=== PATIENT | male | born 1990 | race Two or more races ===

== ENCOUNTER 2024-01-01 17:57 | Emergency (ER) | payer MEDICAID, OTHER ==
[~2024-01-01] VITALS: Ht 185.4 cm; Wt 107.3 kg
[2024-01-01 19:43] VITALS: BP 140/94; PULSE 91; RESP 16; TEMP 98.2; O2SAT 98
[2024-01-01] MEDS ORDERED: IBUP-1456 PO (19:57)
[2024-01-01] MEDS ORDERED: CLIN1CAP70 PO (19:57)
--- NOTE | 2024-01-01 19:57 | ED.PDOC ---
Eye-HPI HPI Comments 33-year-old male presents to ER with complaints of toothache x1 month. Patient reports he has been experiencing left upper and lower toothache x1 month with associated left-sided facial swelling x1 day. States that he did follow up with a provider with regards to his symptoms 10 days ago and was prescribed amoxicillin that he has taken with little relief. He rates his current toothache pain a 10/10 with radiation towards the left side of face and left side of forehead. Patient presents to ER ambulatory on arrival, with steady gait, in no distress and states he has has not yet followed up with a dentist regards to his symptoms. Denies fever, body aches, chills, nausea/vomiting, numbness/tingling or any further symptoms/complaints Chief Complaint: Tooth Pain Time Seen by MD: 18:19 Primary Care Provider: UNKNOWN Reviewed Notes: Nurses Notes, Medications, Allergies Allergies: Coded Allergies: NO KNOWN ALLERGIES (Unverified , 01/01/24) Home Meds Active Scripts Ibuprofen (Ibuprofen) 800 Mg Tab, 1 TAB PO TID PRN, #30 TAB 0 Refills Prov:MARK RODRÍGUEZ 01/01/24 Clindamycin Hcl (Clindamycin Hcl) 300 Mg Cap, 300 MG PO QID for 7 Days, #28 CAP 0 Refills Prov:MARK RODRÍGUEZ 01/01/24 Information Source: Patient Mode of Arrival: Ambulatory Past Medical History PAST MEDICAL HISTORY: Denies Surgical History: Denies all surgeries Family History Family History: Unknown Social History Smoker: Non-Smoker Alcohol: Occasionally Drugs: Denies Drug Use Lives In: Home Constitutional: denies: chills, diaphoresis, fatigue, fever, malaise, sweats, weakness, others EENTM: reports: others (As stated in HPI) Respiratory: denies: cough, hemoptysis, orthopnea, SOB at rest, shortness of breath, SOB with excertion, stridor, wheezing, others Cardiovascular: denies: chest pain, dizzy spells, diaphoresis, Dyspnea on exertion, edema, irregular heart beat, left arm pain, lightheadedness, palpitations, PND, syncope, others Gastrointestinal: denies: abdomen distended, abdominal pain, blood streaked bowels, constipated, diarrhea, dysphagia, difficulty swallowing, hematemesis, melena, nausea, poor appetite, poor fluid intake, rectal bleeding, rectal pain, vomiting, others Genitourinary: denies: burning, dysuria, flank pain, frequency, hematuria, incontinence, penile discharge, penile sore, pain, testicle pain, testicle swelling, urgency, others Neurological: reports: others (As stated in HPI) Musculoskeletal: denies: back pain, gout, joint pain, joint swelling, muscle pain, muscle stiffness, neck pain, others Integumetry: denies: bruises, change in color, change in hair/nails, dryness, laceration, lesions, lumps, rash, wounds, others Allergic/Immunocompromised: denies: Difficulty Healing, Frequent Infections, Hives, Itching, others Hematologic/Lymphatic: denies: anemia, blood clots, easy bleeding, easy bruising, swollen glands, others Endocrine: denies: excessive hunger, excessive sweating, excessive thirst, excessive urination, flushing, intolerance to cold, intolerance to heat, unexplained weight gain, unexplained weight loss, others Psychiatric: denies: anxiety, bipolar disorder, depression, hopeless, panic disorder, schizophrenia, sleepless, suicidal, others Physical Exam General Appearance: No Apparent Distress, Obese HEENT: PERRL/EOMI, Pharynx Normal, TMs Normal, Other (Broken tooth #36 noted with mild surrounding gum swelling/erythema, slight swelling/erythema also noted surrounding gums of tooth #28. Mild left-sided facial swelling noted, no erythema/further skin changes noted) Neck: Full Range of Motion, Non-Tender, Normal Respiratory: Chest Non-Tender, Lungs Clear, No Accessory Muscle Use, No Respiratory Distress, Normal Breath Sounds Cardiovascular: No Murmur, No Gallop, Regular Rate/Rhythm Breast Exam: Deferred Gastrointestinal: NOT DONE Genitalia: Deferred Pelvic: Deferred Rectal: Deferred Extremities: Normal capillary refill, Normal range of motion Neurologic: Alert, records management engineer II-XII nml as Tested, No Motor Deficits, Normal Affect, Normal Mood, No Sensory Deficits Cerebellar Function: Normal Reflexes: Normal Skin: Dry, Normal Color, Warm Lymphatic: No Adenopathy Was a procedure done? Was a procedure done?: No Sedation Sedation?: No EENT DIFF Eye: N/A Mouth: Thrush, Other (Dental abscess, Thom's angina) X-Ray, Labs, Meds, VS Vital Signs Date Time Temp Pulse Resp B/P (MAP) Pulse Ox O2 Delivery O2 Flow Rate FiO2 01/01/24 19:43 91 16 98 Room Air 01/01/24 19:43 98.2 91 16 140/94 (109) 98 98.2 01/01/24 18:10 98.6 91 16 140/94 (109) 98 Rocephin 1 g IM ordered Hurricane spray ordered, patient educated on proper use/dosage Patient reported improvement in symptoms and in no distress prior to discharge Advised to follow up with PCP and dentist in 1-2 days Patient verbalized understanding and agreeable with current plan of care Advised to return to ER immediately if symptoms worsen Time of 1ST Reevaluation: 19:24 Reevaluation 1ST: N/A Patient Education/Counseling: Diagnosis, Treatment, Prognosis, Need For Follow Up Family Education/Counseling: No Family Present Departure 1 Departure Time of Disposition: 19:52 Impression: Primary Impression: Dental infection Additional Impression: Broken tooth Qualified Codes: S02.5XXB - Fracture of tooth (traumatic), initial encounter for open fracture Disposition: HOME / SELF CARE / HOMELESS Condition: Stable e-Prescriptions Ibuprofen (Ibuprofen) 800 Mg Tab 1 TAB PO TID PRN, #30 TAB 0 Refills Prov: MARK RODRÍGUEZ 01/01/24 Clindamycin Hcl (Clindamycin Hcl) 300 Mg Cap 300 MG PO QID for 7 Days, #28 CAP 0 Refills Prov: MARK RODRÍGUEZ 01/01/24 Discharged With: Self Critical Care Note Critical Care Time?: No Stability Stability form required: No Heart Score Heart Score: Heart Score Response (Comments) Value History N/A 0 EKG N/A 0 Age N/A 0 Risk Factors N/A 0 Troponin N/A 0 Total 0 MARK RODRÍGUEZ Jan 01, 2024 19:57
[2024-01-01] MEDS: cefTRIAXone SOD 1,000 MG VL IM ONE (20:23)
[2024-01-01] MEDS: BENZOCAINE (DENTAL) 20 % SPRAY 60ML MT ONE (20:23)
== END 2024-01-01 20:38 | disposition home or self-care (01) ==
LOC: ER 17:57
DX: S02.5XXA Fracture of tooth (traumatic), initial encounter for closed fracture (principal); K04.7 Periapical abscess without sinus; Z79.899 Other long term (current) drug therapy; X58.XXXA Exposure to other specified factors, initial encounter; Y93.9 Activity, unspecified; Y92.89 Other specified places as the place of occurrence of the external cause; Y99.8 Other external cause status
CPT/HCPCS: 96372; 99283; J0696